=== PATIENT | male | born 1975 | race Caucasian/White ===

== ENCOUNTER 2019-02-05 08:29 | Day surgery (SDC) | payer BC ==
[~2019-02-05] VITALS: Ht 193 cm; Wt 115.3 kg
[~2019-02-05 08:29] MED LIST: HYDACE5 PO; LOSA25 PO; NEBI10 PO
== END 2019-02-05 12:14 | disposition home or self-care (01) ==
LOC: ORSCSDS 08:29
PROVIDERS: Internal Medicine Gastroenterology
PROC: 0DBN8ZX Excision of Sigmoid Colon, Via Natural or Artificial Opening Endoscopic, Diagnostic (ICD-10-PCS; principal; 2019-02-05 11:00)
DX: K57.30 Diverticulosis of large intestine without perforation or abscess without bleeding (principal); D12.8 Benign neoplasm of rectum; I10 Essential (primary) hypertension; F17.220 Nicotine dependence, chewing tobacco, uncomplicated; G47.33 Obstructive sleep apnea (adult) (pediatric); F17.210 Nicotine dependence, cigarettes, uncomplicated; Z79.899 Other long term (current) drug therapy
CPT/HCPCS: 88305; J2250; J7120

== ENCOUNTER 2019-04-20 05:57 | Day surgery (SDC) | payer BC ==
[~2019-04-20] VITALS: Ht 193 cm; Wt 118.0 kg
--- NOTE | 2019-04-20 12:55 | NUR ---
PT DRESSED, IV DC'D INTACT, TR BAND REMOVED, DRESSING/SPLINT TO R WRIST, R ARM SLING PLACED, PT CHOOSES TO AMB OUT WITH FRIEND DRIVING PT HOME. SEE RHYTHM STRIP RECORD FOR VITALS
== END 2019-04-20 12:10 | disposition home or self-care (01) ==
LOC: MHTC 05:57
DX: Z01.810 Encounter for preprocedural cardiovascular examination (principal); T82.857A Stenosis of other cardiac prosthetic devices, implants and grafts, initial encounter; I77.810 Thoracic aortic ectasia; I77.9 Disorder of arteries and arterioles, unspecified; I10 Essential (primary) hypertension; Z87.891 Personal history of nicotine dependence; Z87.74 Personal history of (corrected) congenital malformations of heart and circulatory system
CPT/HCPCS: 93454; 99152; 99153; C1769; C1894; J1644; J2250; J3010; J7030; Q9967

== ENCOUNTER 2019-08-11 00:17 | Inpatient (IN) | payer BC ==
[~2019-08-11] VITALS: Ht 193 cm; Wt 117.9 kg
[2019-08-11 00:53] LABS: BASOPHILS ABSOLUTE AUTO 0.02 K/mm3 (0.00-0.23); BASOPHILS PERCENT AUTO 0 % (0-2); EOSINOPHILS ABSOLUTE AUTO 0.03 K/mm3 (0.00-0.68); EOSINOPHILS PERCENT AUTO 0 % (0-6); Hematocrit 50.3 % (37.0-53.0); Hemoglobin 17.3 g/dL (13.5-17.5); IMMATURE GRAN ABSOLUTE AUTO 0.03 K/mm3 (0.00-0.10); IMMATURE GRAN PERCENT AUTO 0 % (0-1); LYMPHOCYTES ABSOLUTE AUTO 1.08 K/mm3 (0.84-5.20); LYMPHOCYTES PERCENT AUTO 10 % (21-46); MONOCYTES ABSOLUTE AUTO 0.77 K/mm3 (0.16-1.47); MONOCYTES PERCENT AUTO 7 % (4-13); Mean Corpuscular HGB 32.9 pg (26.0-34.0); Mean Corpuscular HGB Conc 34.4 g/dL (31.5-36.5); Mean Corpuscular Volume 96 fL (80-100); Mean Platelet Volume 9.5 fL (9.1-12.4); NEUTROPHILS ABSOLUTE AUTO 9.37 K/mm3 (1.96-9.15); NEUTROPHILS PERCENT AUTO 83 % (41-73); Platelet Count 181 K/mm3 (150-400); RDW Coefficient Variation 11.9 % (11.7-14.2); RDW Standard Deviation 41.8 fL (35.1-46.3); Red Blood Cell Count 5.26 M/mm3 (4.30-5.90)
[2019-08-11 01:12] LABS: Alanine Aminotransfer (ALT/SGP 39 U/L (12-78); Alk Phos 112 U/L (50-136); Anion Gap 7 mmol/L (6-16); Aspartate Aminotrans (AST/SGOT 16 U/L (12-37); Bilirubin, Total 1.2 mg/dL (0.1-1.0); Blood Urea Nitrogen 7 mg/dL (8-24); Bun/Creatinine Ratio 8.4 (12.0-20.0); CO2, Blood 28 mmol/L (21-32); Calcium, Blood 8.9 mg/dL (8.5-10.1); Chloride, Blood 101 mmol/L (98-108); Creatinine, Blood 0.83 mg/dL (0.60-1.20); Globulin, Blood 4.1 g/dL (2.2-4.0); Glomerular Filtration Rate >60 (60-); Glucose, Blood 119 mg/dL (70-99); Potassium, Blood 3.9 mmol/L (3.5-5.5); Sodium, Blood 136 mmol/L (136-145); Total Protein, Blood 8.1 g/dL (6.4-8.2)
[2019-08-11] MEDS ORDERED: CLOP75 PO (03:56)
[2019-08-11] MEDS ORDERED: ASPI81CH PO (03:57)
[2019-08-11 05:10] LABS: Hematocrit 46.4 % (37.0-53.0); Hemoglobin 15.7 g/dL (13.5-17.5); Mean Corpuscular HGB 32.3 pg (26.0-34.0); Mean Corpuscular HGB Conc 33.8 g/dL (31.5-36.5); Mean Corpuscular Volume 96 fL (80-100); Mean Platelet Volume 9.7 fL (9.1-12.4); Platelet Count 152 K/mm3 (150-400); RDW Coefficient Variation 11.9 % (11.7-14.2); RDW Standard Deviation 41.4 fL (35.1-46.3); Red Blood Cell Count 4.86 M/mm3 (4.30-5.90); White Blood Cell Count 10.88 K/mm3 (4.00-11.30)
[2019-08-11 05:27] LABS: Alanine Aminotransfer (ALT/SGP 31 U/L (12-78); Albumin, Blood 3.4 g/dL (3.4-5.0); Albumin/Globulin Ratio 0.9 (0.8-1.8); Alk Phos 91 U/L (50-136); Anion Gap 6 mmol/L (6-16); Aspartate Aminotrans (AST/SGOT 13 U/L (12-37); Bilirubin, Total 1.3 mg/dL (0.1-1.0); Blood Urea Nitrogen 7 mg/dL (8-24); Bun/Creatinine Ratio 8.3 (12.0-20.0); CO2, Blood 27 mmol/L (21-32); Calcium, Blood 8.4 mg/dL (8.5-10.1); Chloride, Blood 102 mmol/L (98-108); Creatinine, Blood 0.84 mg/dL (0.60-1.20); Globulin, Blood 3.7 g/dL (2.2-4.0); Glomerular Filtration Rate >60 (60-); Glucose, Blood 114 mg/dL (70-99); Potassium, Blood 3.7 mmol/L (3.5-5.5); Sodium, Blood 135 mmol/L (136-145); Total Protein, Blood 7.1 g/dL (6.4-8.2)
--- NOTE | 2019-08-11 09:33 | NUR ---
SPOKE WITH DR CONNOLLY, HOLD AM MEDS AT THIS TIME.
--- NOTE | 2019-08-11 18:39 | NUR ---
DR GRIFFITH IN TO SEE PT THIS AFTERNOON. PT STATES DR GRIFFITH SAID NO SURGERY AT THIS TIME, WATCH AND WAIT. PT PAIN SLIGHTLY IMPROVED TODAY, NO REPORTED NAUSEA. PT REMAINS NPO, IVF CONTINUED. NO ACUTE CHANGES NOTED THIS SHIFT, WILL CONTINUE TO MONITOR AND REPORT TO ONCOMING RN.
--- NOTE | 2019-08-12 03:56 | NUR ---
IVF CONTINUES AT 125 ML/HR PER MD ORDERS. ALTHOUGH NPO, CONTINUES TO REQUEST ICE CHIPS, REFUSED ORAL SWABS FOR MOISTENING MOUTH. ANTIBIOTICS CONTINUE - SEE MAR FOR DETAILS. STATED THAT HE HAS NOTICED SOME BOWEL SOUNDS IMPROVING. HAS RECEIVED DILAUDID IV X 2 OF THIS WRITING FOR PAIN. CALL LIGHT IN REACH. WILL MONITOR.
[2019-08-12 05:20] LABS: BASOPHILS ABSOLUTE AUTO 0.02 K/mm3 (0.00-0.23); BASOPHILS PERCENT AUTO 0 % (0-2); EOSINOPHILS ABSOLUTE AUTO 0.06 K/mm3 (0.00-0.68); EOSINOPHILS PERCENT AUTO 1 % (0-6); Hematocrit 43.3 % (37.0-53.0); Hemoglobin 14.4 g/dL (13.5-17.5); IMMATURE GRAN ABSOLUTE AUTO 0.05 K/mm3 (0.00-0.10); IMMATURE GRAN PERCENT AUTO 1 % (0-1); LYMPHOCYTES ABSOLUTE AUTO 1.21 K/mm3 (0.84-5.20); LYMPHOCYTES PERCENT AUTO 11 % (21-46); MONOCYTES ABSOLUTE AUTO 0.73 K/mm3 (0.16-1.47); MONOCYTES PERCENT AUTO 7 % (4-13); Mean Corpuscular HGB Conc 33.3 g/dL (31.5-36.5); Mean Platelet Volume 9.9 fL (9.1-12.4); NEUTROPHILS ABSOLUTE AUTO 8.61 K/mm3 (1.96-9.15); NEUTROPHILS PERCENT AUTO 81 % (41-73); Platelet Count 137 K/mm3 (150-400); RDW Coefficient Variation 11.8 % (11.7-14.2); Red Blood Cell Count 4.37 M/mm3 (4.30-5.90); White Blood Cell Count 10.68 K/mm3 (4.00-11.30)
[2019-08-12 05:27] LABS: Mean Corpuscular Volume 99 fL (80-100)
[2019-08-12 05:41] LABS: Alanine Aminotransfer (ALT/SGP 24 U/L (12-78); Albumin, Blood 2.8 g/dL (3.4-5.0); Albumin/Globulin Ratio 0.7 (0.8-1.8); Alk Phos 80 U/L (50-136); Anion Gap 4 mmol/L (6-16); Aspartate Aminotrans (AST/SGOT 12 U/L (12-37); Bilirubin, Total 1.4 mg/dL (0.1-1.0); Blood Urea Nitrogen 10 mg/dL (8-24); Bun/Creatinine Ratio 10.8 (12.0-20.0); CO2, Blood 28 mmol/L (21-32); Calcium, Blood 8.2 mg/dL (8.5-10.1); Chloride, Blood 103 mmol/L (98-108); Creatinine, Blood 0.92 mg/dL (0.60-1.20); Globulin, Blood 3.9 g/dL (2.2-4.0); Glomerular Filtration Rate >60 (60-); Glucose, Blood 90 mg/dL (70-99); Sodium, Blood 135 mmol/L (136-145); Total Protein, Blood 6.7 g/dL (6.4-8.2)
--- NOTE | 2019-08-12 14:09 | NUR ---
PT DIET ADVANCED TO CLEAR LIQUID FOR LUNCH, TOLERATED WELL. IVF DISCONTINUED
--- NOTE | 2019-08-12 18:45 | NUR ---
PT ADVANCED TO CLEAR LIQUIDS FOR LUNCH TODAY, TOLERATED WELL. IVF DISCONTINUED. PAIN HAS CONTINUED TO SLOWLY IMPROVE. NO ACUTE CHANGES NOTED THIS SHIFT. WILL CONTINUE TO MONITOR AND REPORT TO ONCOMING RN.
--- NOTE | 2019-08-13 03:27 | NUR ---
RESTING QUIETLY WITH FEW INTERRUPTIONS THIS SHIFT. HAD PAIN MED X 1 EARLIER, VOICED ABD PAIN LESS THAN WHEN HE WAS ADMITTED. CONCEPCION WOOD IN REACH. VSS. AFEBRILE.
[2019-08-13 05:23] LABS: Alanine Aminotransfer (ALT/SGP 28 U/L (12-78); Albumin, Blood 2.7 g/dL (3.4-5.0); Albumin/Globulin Ratio 0.7 (0.8-1.8); Alk Phos 92 U/L (50-136); Anion Gap 6 mmol/L (6-16); Aspartate Aminotrans (AST/SGOT 18 U/L (12-37); BASOPHILS ABSOLUTE AUTO 0.02 K/mm3 (0.00-0.23); BASOPHILS PERCENT AUTO 0 % (0-2); Bilirubin, Total 1.7 mg/dL (0.1-1.0); Blood Urea Nitrogen 8 mg/dL (8-24); Bun/Creatinine Ratio 8.6 (12.0-20.0); CO2, Blood 29 mmol/L (21-32); Calcium, Blood 8.2 mg/dL (8.5-10.1); Chloride, Blood 103 mmol/L (98-108); Creatinine, Blood 0.93 mg/dL (0.60-1.20); EOSINOPHILS ABSOLUTE AUTO 0.14 K/mm3 (0.00-0.68); EOSINOPHILS PERCENT AUTO 2 % (0-6); Glomerular Filtration Rate >60 (60-); Glucose, Blood 93 mg/dL (70-99); Hematocrit 41.8 % (37.0-53.0); IMMATURE GRAN ABSOLUTE AUTO 0.02 K/mm3 (0.00-0.10); IMMATURE GRAN PERCENT AUTO 0 % (0-1); LYMPHOCYTES ABSOLUTE AUTO 1.13 K/mm3 (0.84-5.20); LYMPHOCYTES PERCENT AUTO 18 % (21-46); MONOCYTES ABSOLUTE AUTO 0.57 K/mm3 (0.16-1.47); MONOCYTES PERCENT AUTO 9 % (4-13); Mean Corpuscular HGB 32.9 pg (26.0-34.0); Mean Corpuscular HGB Conc 33.5 g/dL (31.5-36.5); Mean Corpuscular Volume 98 fL (80-100); NEUTROPHILS ABSOLUTE AUTO 4.51 K/mm3 (1.96-9.15); NEUTROPHILS PERCENT AUTO 71 % (41-73); Platelet Count 128 K/mm3 (150-400); Potassium, Blood 3.7 mmol/L (3.5-5.5); RDW Coefficient Variation 11.7 % (11.7-14.2); RDW Standard Deviation 42.6 fL (35.1-46.3); Red Blood Cell Count 4.25 M/mm3 (4.30-5.90); Sodium, Blood 138 mmol/L (136-145); Total Protein, Blood 6.7 g/dL (6.4-8.2); White Blood Cell Count 6.39 K/mm3 (4.00-11.30)
--- NOTE | 2019-08-13 16:32 | NUR ---
SUMMARY PT IS A/O X4, IND IN ROOM. PLEASANT/COOPERATIVE. HE TOLERATED CL BF, DR GRIFFITH IN TO SEE HIM @ LUNCHTIME, INCREASE DIET TO FL. NO SURGERY @ THIS TIME. PT STATE LLQ ABD TENDERNESS THAT INCREASES WHEN HE IS STANDING, HAS CHOSEN TO REST IN BED T/O DAY. DECLINE IV DILAUDID OR FENTANYL, STATE PAIN LEVEL OF 2/10 WHILE @ REST. IV ANTIBX CONTINUE. DR QUESADA IN TO SEE HIM THIS AFTERNOON, STATE POSSIBLE D/C TOMORROW. VSS, AFEBRILE.
--- NOTE | 2019-08-14 01:58 | NUR ---
PT denies acute pain up ad dagoberto ambulating multiple times in [place]. Requests sleep aide. Melatonin 3 mg now and Q hs PRN ordered by DR Olivera. PT was advanced to full liquid diet minimal appetite for dinner , vanilla yogurt provided. Continues on IV antibiotics Q 6 hours. Denies nausea.
[2019-08-14 05:31] LABS: BASOPHILS ABSOLUTE AUTO 0.02 K/mm3 (0.00-0.23); BASOPHILS PERCENT AUTO 1 % (0-2); EOSINOPHILS ABSOLUTE AUTO 0.19 K/mm3 (0.00-0.68); EOSINOPHILS PERCENT AUTO 5 % (0-6); Hematocrit 43.1 % (37.0-53.0); Hemoglobin 14.7 g/dL (13.5-17.5); IMMATURE GRAN ABSOLUTE AUTO 0.01 K/mm3 (0.00-0.10); IMMATURE GRAN PERCENT AUTO 0 % (0-1); LYMPHOCYTES ABSOLUTE AUTO 0.95 K/mm3 (0.84-5.20); LYMPHOCYTES PERCENT AUTO 23 % (21-46); MONOCYTES ABSOLUTE AUTO 0.42 K/mm3 (0.16-1.47); MONOCYTES PERCENT AUTO 10 % (4-13); Mean Corpuscular HGB Conc 34.1 g/dL (31.5-36.5); Mean Corpuscular Volume 97 fL (80-100); Mean Platelet Volume 9.5 fL (9.1-12.4); NEUTROPHILS ABSOLUTE AUTO 2.48 K/mm3 (1.96-9.15); NEUTROPHILS PERCENT AUTO 61 % (41-73); Platelet Count 160 K/mm3 (150-400); RDW Coefficient Variation 11.6 % (11.7-14.2); RDW Standard Deviation 41.2 fL (35.1-46.3); Red Blood Cell Count 4.46 M/mm3 (4.30-5.90); White Blood Cell Count 4.07 K/mm3 (4.00-11.30)
[2019-08-14 05:52] LABS: Alanine Aminotransfer (ALT/SGP 42 U/L (12-78); Albumin, Blood 2.9 g/dL (3.4-5.0); Albumin/Globulin Ratio 0.7 (0.8-1.8); Alk Phos 118 U/L (50-136); Anion Gap 5 mmol/L (6-16); Aspartate Aminotrans (AST/SGOT 28 U/L (12-37); Blood Urea Nitrogen 7 mg/dL (8-24); Bun/Creatinine Ratio 8.2 (12.0-20.0); CO2, Blood 28 mmol/L (21-32); Chloride, Blood 104 mmol/L (98-108); Creatinine, Blood 0.86 mg/dL (0.60-1.20); Globulin, Blood 4.4 g/dL (2.2-4.0); Glomerular Filtration Rate >60 (60-); Glucose, Blood 99 mg/dL (70-99); Potassium, Blood 3.5 mmol/L (3.5-5.5); Sodium, Blood 137 mmol/L (136-145); Total Protein, Blood 7.3 g/dL (6.4-8.2)
--- NOTE | 2019-08-14 06:24 | NUR ---
PT has no need for pain meds, marcia FARLEY this AM. He has poor appetite but denies nausea. Up indep, amb in halls.
[2019-08-14] MEDS ORDERED: METR500 PO (14:16)
[2019-08-14] MEDS ORDERED: LEVOFLOXACIN750 MG PO (14:16)
--- NOTE | 2019-08-14 14:48 | NUR ---
discharge PT HAS TOLERATED FL DIET BF & LUNCH. STATE PAIN/TENDERNESS TO LLQ CONTINUES MINIMAL, IMPROVED FROM ADMIT. DR CHIANG IN TO SEE HIM, REVIEW RESULTS OF TESTS, STATE OK FOR D/C HOME & F/U OUTPT W DR GRIFFITH. IV D/C INTACT, SCRIPTS FAXED TO [facility], D/C INSTRUCT REVIEWED. PT VERBALIZE UNDERSTANDING. HE IS PLEASANT, STATE FEELS READY TO GO HOME, DECLINES W/C ESCORT FROM HOSP, AMBULATES FROM HOSP ACCOMPANIED BY FRIEND.
== END 2019-08-14 14:47 | disposition home or self-care (01) | DRG 392 ==
LOC: ER 00:17 → MEDS 03:27 → ENPENDDIS 08-14 14:37 → MEDS 08-14 14:47
PROVIDERS: Emergency Medicine; Family Medicine; ADMIT Internal Medicine
DX: K57.20 Diverticulitis of large intestine with perforation and abscess without bleeding (principal); Q23.0 Congenital stenosis of aortic valve; Z95.2 Presence of prosthetic heart valve; F17.200 Nicotine dependence, unspecified, uncomplicated; I10 Essential (primary) hypertension; Z79.82 Long term (current) use of aspirin; Z79.02 Long term (current) use of antithrombotics/antiplatelets; I77.810 Thoracic aortic ectasia
CPT/HCPCS: 36415; 74177; 80053; 83690; 85025; 85027; 96361; 96374-59; 96375; 96376; 99285-25; J1170; J1650; J2405; J2543; J3010; J7030; J7120; Q9967

== ENCOUNTER 2020-01-04 09:15 | Inpatient (IN) | payer BC ==
[~2020-01-04] VITALS: Ht 193 cm; Wt 118.4 kg
[~2020-01-04 09:15] MED LIST changes: +ASPI81CH PO; +CLOP75 PO; +LEVOFLOXACIN750 MG PO; +METR500 PO
--- NOTE | 2020-01-08 10:30 | NUR ---
ASSUMED PT CARE. REPORT FROM NOEMI MCDUFFIE. PT DENIES COMPLAINTS AT THIS TIME.
[2020-01-09 04:27] LABS: BASOPHILS ABSOLUTE AUTO 0.01 K/mm3 (0.00-0.23); BASOPHILS PERCENT AUTO 0 % (0-2); EOSINOPHILS ABSOLUTE AUTO 0.02 K/mm3 (0.00-0.68); EOSINOPHILS PERCENT AUTO 0 % (0-6); Hematocrit 42.6 % (37.0-53.0); Hemoglobin 14.3 g/dL (13.5-17.5); IMMATURE GRAN ABSOLUTE AUTO 0.04 K/mm3 (0.00-0.10); IMMATURE GRAN PERCENT AUTO 1 % (0-1); LYMPHOCYTES ABSOLUTE AUTO 1.24 K/mm3 (0.84-5.20); LYMPHOCYTES PERCENT AUTO 16 % (21-46); MONOCYTES ABSOLUTE AUTO 0.64 K/mm3 (0.16-1.47); MONOCYTES PERCENT AUTO 8 % (4-13); Mean Corpuscular HGB 32.8 pg (26.0-34.0); Mean Corpuscular HGB Conc 33.6 g/dL (31.5-36.5); Mean Platelet Volume 9.3 fL (9.1-12.4); NEUTROPHILS ABSOLUTE AUTO 5.75 K/mm3 (1.96-9.15); NEUTROPHILS PERCENT AUTO 75 % (41-73); Platelet Count 144 K/mm3 (150-400); RDW Coefficient Variation 11.5 % (11.7-14.2); RDW Standard Deviation 41.8 fL (35.1-46.3); Red Blood Cell Count 4.36 M/mm3 (4.30-5.90)
--- NOTE | 2020-01-09 04:27 | NUR ---
SHIFT SUMMARY PT IS S/P SIGMOID COLECTOMY. HE IS A/O X4. PAIN MANAGED WITH CLERICAL AIDE TEACHER. VSS. PT HAS SAT UP ON EDGE OF BED THIS SHIFT BUT DID NOT FEEL STRONG ENOUGH TO STAND. YEBOAH IN PLACE, PATENET. ASSISTED WITH ADL'S PRN.
[2020-01-09 04:28] LABS: Mean Corpuscular Volume 98 fL (80-100)
[2020-01-09 04:46] LABS: Anion Gap 4 mmol/L (6-16); Blood Urea Nitrogen 9 mg/dL (8-24); Bun/Creatinine Ratio 10.4 (12.0-20.0); CO2, Blood 29 mmol/L (21-32); Calcium, Blood 8.2 mg/dL (8.5-10.1); Chloride, Blood 105 mmol/L (98-108); Creatinine, Blood 0.87 mg/dL (0.60-1.20); Glomerular Filtration Rate >60 (60-); Glucose, Blood 94 mg/dL (70-99); Potassium, Blood 4.1 mmol/L (3.5-5.5); Sodium, Blood 138 mmol/L (136-145)
--- NOTE | 2020-01-09 08:42 | NUR ---
DR SCHRADER HERE TO SEE PT, IVF RATE DECREASED PER
--- NOTE | 2020-01-09 08:49 | NUR ---
PT EDUCATED ON I/S AND C.L. DIET.
--- NOTE | 2020-01-09 18:55 | NUR ---
SHIFT SUMMARY PT TOLERATING C.L. DIET. PT BEEN PAINFUL T/O DAY USUALLY APPROX 5/10. PT CONT TO DENY NAUSEA. PT BEEN SITTING AT SIDE OF BED, WENT FOR SHORT WALK THIS EVENING, SAT UP IN RECLINER CHAIR. PT EDILIA WAS DC'D EARLIER TODAY AND PT BEEN VOIDING. DR SCHRADER IN TO SEE PT COUPLE OF TIMES TODAY. FAMILY IN TO VISIT PT WELL.
--- NOTE | 2020-01-10 04:49 | NUR ---
SHIFT SUMMARY PT A/O X4. TOLERATING CLEAR LIQUID DIET WITH NO C/O NAUSEA. REPORTS PASSING GAS. DIRECTOR MANUFACTURING ENGINEERING PUMP IN PLACE FOR PAIN. PT REPOSITIONS SELF IN BED. HAS HAD CPAP DURING SLEEP. PT VOIDING; USES URINAL. ASSISTED WITH ADL'S PRN.
--- NOTE | 2020-01-10 11:50 | NUR ---
WAS HERE EARLIER AND CHANGED DRESSING.
--- NOTE | 2020-01-10 16:54 | NUR ---
DR SCHRADER HERE RECENTLY, DISCUSSED PT'S STATUS INCLUDING VS, PAIN, AND PT UP TO BATHROOM AND PASSING LOTS OF GAS AND HAVING SMEAR. REPORTS WILL PLACE ORDERS.
--- NOTE | 2020-01-10 16:55 | NUR ---
SHIFT SUMMARY PT TOLERATING C.L. DIET. PT HAVING PAIN, GAS PAIN. PT UP AND AMBULATED IN HALLWAY X2 TODAY WITH RN. PT BEEN ASSISTED WITH ADL'S PRN. PT VOIDING. PT MED PRN FOR PAIN. DISCUSSED PT'S STATUS WITH DR SCHRADER THIS AM AND AFTERNOON. PT USING vendome [id number] APPR.
--- NOTE | 2020-01-11 05:00 | NUR ---
SHIFT SUMMARY POD 3 SIGMOID COLECTOMY. PT AA0X4, VSS. PT REPORTS PAIN IN ABDOMEN TOLERATING PO PAIN MEDS. PAIN CONTROL GETTING BETTER PER PT REPORT. PT AMBULATING IN ROOM, REPORTS PASSING GAS. BETTE DRAIN PATENT AND DRAINING RED LIQUID. DRESSING CHANGED AROUND BETTE. PICCO DRESSING INTACT, FOAM COMPRESSED. TOLERATING CLEARS.
[2020-01-11] MEDS ORDERED: ONDA4ODT MM (13:14)
[2020-01-11] MEDS ORDERED: Percocet 5-3251 EACH PO (13:14)
--- NOTE | 2020-01-11 14:23 | NUR ---
DISCHARGE SUMMARY PT A&OX4, VSS, DECLINED WC, WALKED OFF FLOOR WITH DAD, WITH ALL PERSONAL POSSESSIONS INCLUDING DISCHARGE PACKET, 1 NARC SCRIPT AND 1 ZOFRAN SCRIPT. DC INSTRUCTIONS PROVIDED. PT REP UNDERSTANDING THOSE INSTRUCTIONS. IV DC'D.
== END 2020-01-11 14:18 | disposition home or self-care (01) | DRG 330 ==
LOC: SURS 01-08 08:44 → PRE IP 01-08 10:30 → SURS 01-08 19:50
PROVIDERS: ADMIT Surgery
PROC: 8E0W4CZ Robotic Assisted Procedure of Trunk Region, Percutaneous Endoscopic Approach (ICD-10-PCS; 2020-01-08)
PROC: 0DTN4ZZ Resection of Sigmoid Colon, Percutaneous Endoscopic Approach (ICD-10-PCS; principal; 2020-01-08 10:30)
DX: K57.32 Diverticulitis of large intestine without perforation or abscess without bleeding (principal); K56.699 Other intestinal obstruction unspecified as to partial versus complete obstruction; Z95.2 Presence of prosthetic heart valve; Z87.891 Personal history of nicotine dependence; I10 Essential (primary) hypertension; I35.0 Nonrheumatic aortic (valve) stenosis
CPT/HCPCS: 36415; 80048; 85025; 94762; A9270; J0690; J1100; J1650; J1885; J2250; J2405; J2704; J3010; J3360; J7050; J7120

== ENCOUNTER 2023-02-04 05:07 | Inpatient (IN) | payer BC ==
[~2023-02-04] VITALS: Ht 193 cm; Wt 116.4 kg
[~2023-02-04 05:07] MED LIST changes: +ONDA4ODT MM; +Percocet 5-3251 EACH PO
[2023-02-04 05:57] LABS: BASOPHILS ABSOLUTE AUTO 0.02 K/mm3 (0.00-0.23); BASOPHILS PERCENT AUTO 0 % (0-2); EOSINOPHILS ABSOLUTE AUTO 0.11 K/mm3 (0.00-0.68); EOSINOPHILS PERCENT AUTO 1 % (0-6); Hematocrit 49.5 % (37.0-53.0); Hemoglobin 17.2 g/dL (13.5-17.5); IMMATURE GRAN ABSOLUTE AUTO 0.03 K/mm3 (0.00-0.10); IMMATURE GRAN PERCENT AUTO 0 % (0-1); LYMPHOCYTES ABSOLUTE AUTO 1.49 K/mm3 (0.84-5.20); LYMPHOCYTES PERCENT AUTO 18 % (21-46); MONOCYTES ABSOLUTE AUTO 0.45 K/mm3 (0.16-1.47); MONOCYTES PERCENT AUTO 6 % (4-13); Mean Corpuscular HGB 32.3 pg (26.0-34.0); Mean Corpuscular HGB Conc 34.7 g/dL (31.5-36.5); Mean Corpuscular Volume 93 fL (80-100); Mean Platelet Volume 10.2 fL (9.1-12.4); NEUTROPHILS ABSOLUTE AUTO 5.99 K/mm3 (1.96-9.15); NEUTROPHILS PERCENT AUTO 74 % (41-73); Platelet Count 141 K/mm3 (150-400); RDW Coefficient Variation 12.2 % (11.7-14.2); RDW Standard Deviation 41.7 fL (35.1-46.3); Red Blood Cell Count 5.33 M/mm3 (4.30-5.90); White Blood Cell Count 8.09 K/mm3 (4.00-11.30)
[2023-02-04 06:16] LABS: Albumin, Blood 3.9 g/dL (3.4-5.0); Albumin/Globulin Ratio 1.1 (0.8-1.8); Bun/Creatinine Ratio 11.2 (12.0-20.0); Calcium, Blood 9.1 mg/dL (8.5-10.1); Creatinine, Blood 0.81 mg/dL (0.60-1.20); Globulin, Blood 3.6 g/dL (2.2-4.0); Potassium, Blood 4.4 mmol/L (3.5-5.5); Total Protein, Blood 7.5 g/dL (6.4-8.2)
[2023-02-04 06:35] LABS: Magnesium, Blood 2.2 mg/dL (1.6-2.4)
--- NOTE | 2023-02-04 14:08 | NUR ---
[address] ANDUJAR WAS CALLED BY THIS RN AND NOTIFIED OF PT'S INCREASING TROPONIN LABS- NOW 152. NO NEW ORDERS.
--- NOTE | 2023-02-04 14:10 | NUR ---
1230 TODAY PT ARRIVED TO THE FLOOR AFTER RN RECEIVED REPORT FROM ER NURSE.
--- NOTE | 2023-02-05 04:39 | NUR ---
Summary: Dr. Vaughan at bedside this evening. Patient given IV lasix and new oral BP meds and diuretics. Patient AOx4, independent. After meds given patient still cannot tolerate laying flat very well. Patient states he wears a CPAP at home sometimes but did not want to wear one now. Placed patient on 2L O2 NC and provided bedside fan while he slept to try and treat symptoms. Patient stated he still felt like he couldn't get enough air and did not tolerate laying flat well. VSS otherwise no acute events on tele.
[2023-02-05 05:27] LABS: BASOPHILS ABSOLUTE AUTO 0.02 K/mm3 (0.00-0.23); BASOPHILS PERCENT AUTO 0 % (0-2); EOSINOPHILS ABSOLUTE AUTO 0.16 K/mm3 (0.00-0.68); EOSINOPHILS PERCENT AUTO 3 % (0-6); Hematocrit 48.7 % (37.0-53.0); Hemoglobin 17.2 g/dL (13.5-17.5); IMMATURE GRAN ABSOLUTE AUTO 0.01 K/mm3 (0.00-0.10); IMMATURE GRAN PERCENT AUTO 0 % (0-1); LYMPHOCYTES ABSOLUTE AUTO 1.78 K/mm3 (0.84-5.20); LYMPHOCYTES PERCENT AUTO 31 % (21-46); MONOCYTES ABSOLUTE AUTO 0.52 K/mm3 (0.16-1.47); MONOCYTES PERCENT AUTO 9 % (4-13); Mean Corpuscular HGB 32.8 pg (26.0-34.0); Mean Corpuscular HGB Conc 35.3 g/dL (31.5-36.5); Mean Corpuscular Volume 93 fL (80-100); Mean Platelet Volume 10.4 fL (9.1-12.4); NEUTROPHILS ABSOLUTE AUTO 3.31 K/mm3 (1.96-9.15); NEUTROPHILS PERCENT AUTO 57 % (41-73); Platelet Count 142 K/mm3 (150-400); RDW Coefficient Variation 12.2 % (11.7-14.2); RDW Standard Deviation 41.6 fL (35.1-46.3); Red Blood Cell Count 5.25 M/mm3 (4.30-5.90)
[2023-02-05 05:58] LABS: Albumin, Blood 3.6 g/dL (3.4-5.0); Albumin/Globulin Ratio 0.9 (0.8-1.8); Bilirubin, Total 1.7 mg/dL (0.1-1.0); Bun/Creatinine Ratio 14.8 (12.0-20.0); Calcium, Blood 8.8 mg/dL (8.5-10.1); Creatinine, Blood 0.74 mg/dL (0.60-1.20); Globulin, Blood 3.9 g/dL (2.2-4.0); Potassium, Blood 3.7 mmol/L (3.5-5.5); Total Protein, Blood 7.5 g/dL (6.4-8.2)
--- NOTE | 2023-02-05 09:00 | NUR ---
PT PLEASANT COOP A/O X3 TALKATIVE. STATES NO C/P OR PRESSURE AT THIS TIME. CONTINUES TO HAVE DIFFICULTY BREATHING IF LYING FLAT. STATES 2L O2 SEEMS TO HELP WHEN DOWN. DISCUSSED HIS WORK. OWNS COACHCRAFTERSRAÚL. H/R REG, NO MURMUR NOTED. PER TELE NSR AT 85 WITH 1' BLOCK WITH PAC'S. LUNGS CLEAR, RESP EASY, UNLABORED. ON R.A. BT X4 LAST BM 2 DAYS. VOIDS INDEPENDANT TO BATHROOM. BED IN LOW POSITION, CALL LITE IN REACH, CALLS APPROP
--- NOTE | 2023-02-05 17:54 | NUR ---
PT PLEASANT TODAY. NO C/O PAIN OR PRESSURE AT THIS TIME. DR BARBER IN TO SEE TODAY. IS PANNED FOR ANGIOGRAM TOMORROW 900 AM. NPO MIDNITE. ORDERS TO START N/S AT 125/HR AT 0700 TOMORROW. NO OTHER CONCERNS NOTED. IS NOT PRESENTLY ON O2 AT THIS TIME. BED IN LOW POSITION, CALL LITE IN REACH, CALLS APPROP
--- NOTE | 2023-02-06 03:57 | NUR ---
Pt resting in room pt medicaed for a CORDERO and pt c/o being uncomfortable in the bed. no c/o chest pain or sob.
[2023-02-06 05:02] LABS: BASOPHILS ABSOLUTE AUTO 0.03 K/mm3 (0.00-0.23); BASOPHILS PERCENT AUTO 0 % (0-2); EOSINOPHILS ABSOLUTE AUTO 0.15 K/mm3 (0.00-0.68); EOSINOPHILS PERCENT AUTO 2 % (0-6); Hematocrit 50.8 % (37.0-53.0); Hemoglobin 17.5 g/dL (13.5-17.5); IMMATURE GRAN ABSOLUTE AUTO 0.03 K/mm3 (0.00-0.10); IMMATURE GRAN PERCENT AUTO 0 % (0-1); LYMPHOCYTES ABSOLUTE AUTO 1.72 K/mm3 (0.84-5.20); LYMPHOCYTES PERCENT AUTO 24 % (21-46); MONOCYTES ABSOLUTE AUTO 0.69 K/mm3 (0.16-1.47); MONOCYTES PERCENT AUTO 10 % (4-13); Mean Corpuscular HGB 32.2 pg (26.0-34.0); Mean Corpuscular HGB Conc 34.4 g/dL (31.5-36.5); Mean Corpuscular Volume 93 fL (80-100); Mean Platelet Volume 10.3 fL (9.1-12.4); NEUTROPHILS ABSOLUTE AUTO 4.57 K/mm3 (1.96-9.15); NEUTROPHILS PERCENT AUTO 64 % (41-73); Platelet Count 147 K/mm3 (150-400); RDW Coefficient Variation 12.3 % (11.7-14.2); RDW Standard Deviation 42.3 fL (35.1-46.3); Red Blood Cell Count 5.44 M/mm3 (4.30-5.90); White Blood Cell Count 7.19 K/mm3 (4.00-11.30)
[2023-02-06 05:25] LABS: Anion Gap 5 mmol/L (6-16); Blood Urea Nitrogen 16 mg/dL (8-24); Bun/Creatinine Ratio 16.7 (12.0-20.0); CHOL/HDL RATIO 4.8; CO2, Blood 27 mmol/L (21-32); Calcium, Blood 9.4 mg/dL (8.5-10.1); Chloride, Blood 101 mmol/L (98-108); Cholesterol 178 mg/dL (50-200); Creatinine, Blood 0.96 mg/dL (0.60-1.20); Glomerular Filtration Rate 99 (60-); Glucose, Blood 117 mg/dL (70-99); HDL Cholesterol 37 mg/dL (>39); LDL/HDL RATIO 3.1; Low Density Lipoprotein Chol 113 mg/dL (0-110); Potassium, Blood 3.8 mmol/L (3.5-5.5); Sodium, Blood 133 mmol/L (136-145); Triglycerides 139 mg/dL (30-160); Very Low Density Lipoprot Chol 27 mg/dL (6-32)
--- NOTE | 2023-02-06 08:00 | NUR ---
PT PLEASANT A/O X3 SOMEWHAT IRRITATED ABOUT POOR REST LAST NIGHT AND ISSUES WITH HIS HOME CPAP. DENIES C/PN OR PRESSURE. H/R REG, MURMUR NOTED. PER TELE, NSR AT 67 WITH 1' BLOCK, PAC'S. LUNGS CLEAR, RESP EASY, UNLABORED. ON R.A. BT X4 LAST BM YEST PER PT. VOIDS INDEPENDANT TO BATHROOM BED IN LOW POSITION, CALL LITE IN REACH, CALLS APPROP. PT HAS BEEN NPO SINCE MEDNITE. GIVING AM MEDS.
--- NOTE | 2023-02-06 09:21 | NUR ---
[facility]11 [facility] [id number] CALLED REPORT TO ANT RN, PCU. PT TO RECOVER TO PCU 15. AIDE TO TAKE PERSONAL ITEMS TO NEW ROOM.
--- NOTE | 2023-02-06 10:45 | NUR ---
PT ARRIVED IN PCU 15 VIA WHEELCHAIR FORM RECEPTION, REPORT RECEIVED FROM BRANDEN FRANKLIN ALL BELONGINGS TRANSFERRED TO PCU 15 FROM RM 344. PT ARRIVED WITH TR BAND ON RIGHT WRIST 12CC OF AIR, RIGHT RADIAL SITE, PT IS CLEAR. DR BARBER IN THE ROOM WITH THE PT DISCUSSING FURTHER PLAN PT AGREED TO GET TRANSFERRED UP TO [facility] FOR THE CT PROCEDURE FOR MECHANICAL VALVE PLACEMENT. VITALS STABLE AT THIS TIME, PT DENIES ANY CHEST PAIN/PRESSURE. AWAITING FOR ORDERS WILL MONITOR
[2023-02-06 11:47] LABS: SARS-Cov-2 (COVID-19) PCR, MMC Negative (NEGATIVE)
--- NOTE | 2023-02-06 13:52 | NUR ---
PT HALLE TRANSFERRED TO [facility], TRANSPORTATION ARRIVED AT 1335 AND PICKEP UP THE PT, REPORT GIVEN TO [employer] DESIGN ENGINEER AT THE ACCEPTING UNIT. PT DENIED ANY CHEST PAIN/SOB POST ANGIO THIS MORNING, VITALS HAS BEEN STABLE. TR BAND ON RIGHT RADIAL SITE WAS FULLY DEFLATED, TR BAND AND SPLINT BOARD REMAINED IN PLACE, 20G PIV ON RAC KEPT IN PLACE REMAINED PATENT AND INTACT. ALL BELONGINGS SENT WITH THE PT, DAD AWAITING IN THE ER ENTRANCE TO HAND HIM HIS OTHER BELONGINGS THAT NEEDS TO GO WITH HIM.
== END 2023-02-06 13:40 | disposition home or self-care (01) | DRG 280 ==
LOC: ER 05:07 → MEDS 05:08 → PCU 02-06 10:10 → MEDS 02-06 10:10 → PCU 02-06 13:40
PROVIDERS: Emergency Medicine; Internal Medicine Cardiovascular Disease; ADMIT Internal Medicine
PROC: 4A023N7 Measurement of Cardiac Sampling and Pressure, Left Heart, Percutaneous Approach (ICD-10-PCS; principal; 2023-02-06)
PROC: B211YZZ Fluoroscopy of Multiple Coronary Arteries using Other Contrast (ICD-10-PCS; 2023-02-06)
PROC: B240ZZ3 Ultrasonography of Single Coronary Artery, Intravascular (ICD-10-PCS; 2023-02-06)
PROC: 5A09357 Assistance with Respiratory Ventilation, Less than 24 Consecutive Hours, Continuous Positive Airway Pressure (ICD-10-PCS; 2023-02-06)
DX: I21.4 Non-ST elevation (NSTEMI) myocardial infarction (principal); I50.41 Acute combined systolic (congestive) and diastolic (congestive) heart failure; I11.0 Hypertensive heart disease with heart failure; E78.5 Hyperlipidemia, unspecified; I35.2 Nonrheumatic aortic (valve) stenosis with insufficiency; E66.9 Obesity, unspecified; Z20.822 Contact with and (suspected) exposure to COVID-19; F17.220 Nicotine dependence, chewing tobacco, uncomplicated; F10.10 Alcohol abuse, uncomplicated; G47.33 Obstructive sleep apnea (adult) (pediatric); Z95.2 Presence of prosthetic heart valve; Z87.19 Personal history of other diseases of the digestive system; Z98.890 Other specified postprocedural states; Z79.899 Other long term (current) drug therapy; Z79.82 Long term (current) use of aspirin; Z79.891 Long term (current) use of opiate analgesic; Z90.49 Acquired absence of other specified parts of digestive tract; Z68.32 Body mass index [BMI] 32.0-32.9, adult; Z88.8 Allergy status to other drugs, medicaments and biological substances; Z71.6 Tobacco abuse counseling
CPT/HCPCS: 36415; 71045; 76937; 80048; 80053; 80061; 83735; 83880; 84484; 85025; 93005; 93010; 93306; 93454; 94660; 94760; 94762; 96372; 96374-59; 96376; 99152; 99153; 99285-25; A9270; C1769; C1887; C1894; G0378; J1644; J1650; J1940; J2250; J3010; J7030; J7040; J7050; Q9967; U0004

== ENCOUNTER 2023-10-15 15:26 | Emergency (ER) | payer BC ==
[~2023-10-15] VITALS: Ht 182.9 cm; Wt 113.4 kg
[~2023-10-15 15:26] MED LIST changes: +FUROSEMIDE40 MG PO; +LEVE500 PO; +LOSA50 PO; +METOPROLOL TART25 MG PO; +Potassium Chlo20 ME1 PO; +WARF5 PO
[2023-10-15 16:13] LABS: BASOPHILS ABSOLUTE AUTO 0.04 K/mm3 (0.00-0.23); BASOPHILS PERCENT AUTO 0 % (0-2); EOSINOPHILS ABSOLUTE AUTO 0.08 K/mm3 (0.00-0.68); EOSINOPHILS PERCENT AUTO 1 % (0-6); Hematocrit 46.5 % (37.0-53.0); Hemoglobin 15.2 g/dL (13.5-17.5); IMMATURE GRAN ABSOLUTE AUTO 0.56 K/mm3 (0.00-0.10); IMMATURE GRAN PERCENT AUTO 4 % (0-1); LYMPHOCYTES ABSOLUTE AUTO 3.56 K/mm3 (0.84-5.20); LYMPHOCYTES PERCENT AUTO 25 % (21-46); MONOCYTES ABSOLUTE AUTO 0.47 K/mm3 (0.16-1.47); MONOCYTES PERCENT AUTO 3 % (4-13); Mean Corpuscular HGB Conc 32.7 g/dL (31.5-36.5); Mean Corpuscular Volume 95 fL (80-100); Mean Platelet Volume 9.5 fL (9.1-12.4); NEUTROPHILS ABSOLUTE AUTO 9.31 K/mm3 (1.96-9.15); NEUTROPHILS PERCENT AUTO 66 % (41-73); Platelet Count 257 K/mm3 (150-400); RDW Coefficient Variation 12.2 % (11.7-14.2); RDW Standard Deviation 42.8 fL (35.1-46.3); Red Blood Cell Count 4.91 M/mm3 (4.30-5.90); White Blood Cell Count 14.02 K/mm3 (4.00-11.30)
[2023-10-15 16:36] LABS: Albumin, Blood 3.8 g/dL (3.4-5.0); Albumin/Globulin Ratio 1.1 (0.8-1.8); Bilirubin, Total 0.4 mg/dL (0.1-1.0); Bun/Creatinine Ratio 10.2 (12.0-20.0); Calcium, Blood 8.6 mg/dL (8.5-10.1); Creatinine, Blood 1.18 mg/dL (0.60-1.20); Globulin, Blood 3.5 g/dL (2.2-4.0); Potassium, Blood 4.5 mmol/L (3.5-5.5); Total Protein, Blood 7.3 g/dL (6.4-8.2)
[2023-10-15 19:08] VITALS: BP 122/74
[2023-10-15] MEDS ORDERED: LEVE500 PO (19:36)
== END 2023-10-15 20:34 | disposition home or self-care (01) ==
LOC: ER 15:26
PROVIDERS: Emergency Medicine
DX: R56.9 Unspecified convulsions (principal); I48.91 Unspecified atrial fibrillation; M54.50 Low back pain, unspecified; I11.0 Hypertensive heart disease with heart failure; I50.30 Unspecified diastolic (congestive) heart failure; E78.5 Hyperlipidemia, unspecified; Z88.8 Allergy status to other drugs, medicaments and biological substances; Z79.01 Long term (current) use of anticoagulants; Z79.82 Long term (current) use of aspirin; Z79.899 Other long term (current) drug therapy; Z95.3 Presence of xenogenic heart valve
CPT/HCPCS: 70450; 80053; 85025; 93005; 93010; 96365; 96375; 99285-25; J1953; J2270; J7030